=== PATIENT | male | born 1935 | race Caucasian/White ===

== ENCOUNTER 2019-03-28 12:50 | Emergency (ER) | payer MEDICARE, BC ==
[2019-03-28 13:11] VITALS: BP 116/53
--- NOTE | 2019-03-28 13:29 | UC ---
Respiratory Complaint HPI - HPI Summary HPI Summary: Pt is 83 y/o male with hx of A Fib, CABG, and mitral valve replacement with productive cough x 3 days. Notes green sputum without blood. Denies chest pain, shortness of breath, nausea, abdominal pain, fevers, chills, sore throat, nasal congestion, sinus pain. No relief of symptoms with Robitussin, cough keeps him awake at night. Denies history of asthma, COPD, and tobacco use. - History of Current Complaint Chief Complaint: UCRespiratory Stated Complaint: CHEST CONGESTION Time Seen by Provider: 03/28/19 13:18 Hx Obtained From: Patient Onset/Duration: Sudden Onset Timing: Intermittent Episodes Severity Initially: Mild Severity Currently: Mild Pain Intensity: 0 Pain Scale Used: 0-10 Numeric Character: Cough: Productive, Sputum Description: - Green, no blood Aggravating Factors: Nothing Alleviating Factors: Nothing Associated Signs And Symptoms: Negative: Dyspnea, Fever, Chills, Pleuritic Chest Pain, Wheezing, Nasal Congestion - Allergies/Home Medications Allergies/Adverse Reactions: Allergies Allergy/AdvReac Type Severity Reaction Status Date / Time No Known Allergies Allergy Verified 03/28/19 13:10 Home Medications: Home Medications Amiodarone TAB* [Cordarone Tab*] 100 mg PO DAILY 03/28/19 [History Confirmed 04/10] Apixaban* [Eliquis*] 5 mg PO BID 03/28/19 [History Confirmed 03/28/19] Carvedilol TAB* [Coreg TAB*] 1 tab PO QPM 03/28/19 [History Confirmed 03/28/19] Carvedilol TAB* [Coreg TAB*] 2 tab PO QAM 03/28/19 [History Confirmed 03/28/19] Losartan Potassium [Cozaar] 50 mg PO DAILY 03/28/19 [History Confirmed 03/28/19] Torsemide TAB* [Demadex 20 MG*] 20 mg PO EVERY OTHER DAY 03/28/19 [History Confirmed 03/28/19] Torsemide TAB* [Demadex*] 10 mg PO EVERY OTHER DAY 03/28/19 [History Confirmed 03/28/19] guaiFENesin LIQ* [Robitussin*] 5 mg PO Q4H PRN 03/28/19 [History Confirmed 03/28] PMH/Surg Hx/FS Hx/Imm Hx Previously Healthy: No Cardiovascular History: Cardiac Disease - CABG, Pacemaker/ICD, Atrial Fibrillation - Surgical History Surgical History: Yes Surgery Procedure, Year, and Place: hernia repair, cabg 4, graft right leg - Family History Known Family History: Positive: None - Social History Alcohol Use: Occasionally Substance Use Type: None Smoking Status (MU): Never Smoked Tobacco Have You Smoked in the Last Year: No When Did the Patient Quit Smoking/Using Tobacco: states he smoked cigars in the pas Household Exposure Type: Cigars - Immunization History Most Recent Influenza Vaccination: fall 2014 Most Recent Tetanus Shot: unknown Most Recent Pneumonia Vaccination: had this in the past Review of Systems All Other Systems Reviewed And Are Negative: Yes Constitutional: Negative: Fever, Chills ENT: Negative: Sore Throat, Nasal Discharge, Sinus Pain/Tenderness Respiratory: Positive: Cough - productive. Negative: Shortness Of Breath Cardiovascular: Negative: Chest Pain Gastrointestinal: Negative: Vomiting, Nausea Physical Exam Triage Information Reviewed: Yes Appearance: Well-Appearing, No Pain Distress Vital Signs: Initial Vital Signs Temp 99.1 F 03/28/19 13:08 Pulse 61 03/28/19 13:08 Resp 16 03/28/19 13:08 BP 116/53 03/28/19 13:08 Pulse Ox 98 03/28/19 13:08 Vital Signs Reviewed: Yes Eye Exam: Normal ENT Exam: Normal ENT: Positive: Normal ENT inspection, Pharynx normal. Negative: Pharyngeal erythema, Nasal congestion, Nasal drainage Neck exam: Normal Neck: Positive: Supple, Nontender Respiratory: Positive: Lungs clear, No respiratory distress, No accessory muscle use, Decreased breath sounds - Right base.. Negative: Crackles, Rhonchi , Wheezing Cardiovascular: Positive: RRR Abdomen Description: Positive: Nontender. Negative: Distended Musculoskeletal Exam: Normal Neurological Exam: Normal Psychological Exam: Normal Skin Exam: Normal Respiratory Course/Dx - Course Course Of Treatment: 83 y/o male with productive cough x 3 days without relief with Robitussin and difficulty sleeping secondary to cough. Discharged with prescription for tessalon and amoxicillin. Patient had requested antibiotic. Quite breath sounds without fever in the right base. No distress. To f/u with PCP. Patient seen in collaboration with the physician engineering inspection assistant student. - Differential Dx/Diagnosis Differential Diagnosis/HQI/PQRI: Bronchitis, Lower Resp Infection, Other - URI Provider Diagnosis: Cough Discharge - Sign-Out/Discharge Documenting (check all that apply): Patient Departure All imaging exams completed and their final reports reviewed: No Studies - Discharge Plan Condition: Improved Disposition: HOME Prescriptions: Amoxicillin PO (*) [Amoxicillin 875 MG (*)] 875 mg PO BID #20 tab Benzonatate CAP* [Tessalon 100 MG CAP*] 100 mg PO TID PRN #21 cap PRN Reason: Cough guaiFENesin [Mucinex] 1,200 mg PO BID PRN #20 tab.er.12h PRN Reason: Congestion Patient Education Materials: Acute Bronchitis (ED) Referrals: Nahum Gaytan, [employer] [Primary Care Provider] - Additional Instructions: Drink plenty of fluids. Vitamin C may help. Humidifier while sleeping. Avoid smoke and smokers. Return with fever, difficulty breathing, worse, new symptoms or other concerns. Call today to schedule prompt follow-up with your doctor. - Billing Disposition and Condition Condition: IMPROVED Disposition: Home - Attestation Statements Document Initiated by Jerson: Yes Documenting Scribe: CRISTIANA Siddiqui Provider For Whom Jerson is Documenting (Include Credential): Dr. Brian Snell Scribe Attestation: Pablo Padilla PA-S, scribed for Dr. Brian Snell on 03/28/19 at 1344. Scribe Documentation Reviewed: Yes Provider Attestation: The documentation as recorded by the Pablo jacques PA-S accurately reflects the service I personally performed and the decisions made by Dr. Brian johnson Status of Scribe Document: Viewed
== END 2019-03-28 13:42 | disposition home or self-care (01) ==
LOC: UCEAST 12:50
DX: R05 Cough (principal); Z87.891 Personal history of nicotine dependence
CPT/HCPCS: 99212; G0463